=== PATIENT | female | born 1960 | race African-American/Black ===

== ENCOUNTER 2017-10-08 15:05 | Outpatient (CLI) | payer MEDICARE, MEDICAID | END 2017-10-08 15:06 | disposition home or self-care (01) | LOC: BICMAMMO 15:05 | PROVIDERS: ATTEND Family Medicine | DX: Z12.31 Encounter for screening mammogram for malignant neoplasm of breast (principal) | CPT/HCPCS: 77063; 77067 ==

== ENCOUNTER 2018-10-09 14:28 | Outpatient (CLI) | payer MEDICARE, MEDICAID ==
--- NOTE | 2018-10-19 13:19 | MMO ---
Bilateral MAMMO Bilat Screen [facility]. CLINICAL HISTORY: Patient is 58 years old and is seen for screening. The patient has the following family history of breast cancer: maternal grandmother, at age 90, malignant (generic). The patient has no personal history of cancer. VIEWS: The views performed were: bilateral craniocaudal with tomosynthesis and bilateral mediolateral oblique with tomosynthesis. FILMS COMPARED: The present examination has been compared to prior imaging studies performed at [facility] on 11/27/1999, 02/13/2001, 05/20/2002, 05/23/2003, 07/12/2004, 07/17/2005, 07/18/2006, 08/26/2007, 08/31/2008, 09/01/2009, 09/03/2010, 09/02/2011, 09/04/2012, 09/06/2013, 09/07/2014, 09/15/2015, 09/17/2016 and 10/08/2017. MAMMOGRAM FINDINGS: The breasts are heterogeneously dense, which could obscure a lesion on mammography. There are no suspicious masses, calcifications or areas of architectural distortion. IMPRESSION: THERE IS NO MAMMOGRAPHIC EVIDENCE OF MALIGNANCY. A ROUTINE FOLLOW-UP MAMMOGRAM IN 1 YEAR IS RECOMMENDED. THE RESULTS OF THIS EXAM WERE SENT TO THE PATIENT. ACR BI-RADS Category 1 - Negative MAMMOGRAPHY NOTE: 1. A negative mammogram report should not delay a biopsy if a dominant of clinically suspicious mass is present. 2. Approximately 10% to 15% of breast cancers are not detected by mammography. 3. Adenosis and dense breasts may obscure an underlying neoplasm.
== END 2018-10-09 14:29 | disposition home or self-care (01) ==
LOC: BICMAMMO 14:28
PROVIDERS: ATTEND Family Medicine
DX: Z12.31 Encounter for screening mammogram for malignant neoplasm of breast (principal); Z80.3 Family history of malignant neoplasm of breast
CPT/HCPCS: 77063; 77067

== ENCOUNTER 2018-10-26 14:43 | Outpatient (CLI) | payer MEDICARE, MEDICAID ==
--- NOTE | 2018-10-26 16:19 | CT ---
LOW DOSE CT SCAN OF THE CHEST FOR LUNG CANCER SCREENING WITHOUT IV CONTRAST: History: Smoker for 30 years. FINDINGS: There are scattered bullous changes. There is a 19 mm nodule in the right upper lobe anteriorly with adjacent mild infiltrate. Also noted are nodules around a bullous lesion in the right lower lobe, the largest measuring 15 mm. No effusions are seen. There are vascular calcifications without evidence of aneurysm or dilatation o f the abdominal aorta. No acute fracture or dislocation identified. IMPRESSION: Right sided lung nodules which could be suspicious. RECOMMENDATION: Further evaluation with PET scan is recommended after a course of antibiotics. POS: TPC
== END 2018-10-26 14:44 | disposition home or self-care (01) ==
LOC: CT 14:43
PROVIDERS: ATTEND Family Medicine
DX: F17.210 Nicotine dependence, cigarettes, uncomplicated (principal)
CPT/HCPCS: G0297

== ENCOUNTER 2018-12-31 10:23 | Outpatient (CLI) | payer MEDICARE, MEDICAID ==
--- NOTE | 2018-12-31 12:00 | PET ---
Exam: PET CT skull to mid thigh COMPARISON: CT thorax, 10/26/2018 HISTORY: Pulmonary nodules, right lung TECHNIQUE: A PET/CT was performed from the skull to the mid thigh after administration of 10.3 millicuries of F- 18 FDG. Evaluation was performed on a [employer] workstation. FINDINGS: NECK: No areas of hypermetabolic activity CHEST: Previously documented right upper lobe pulmonary nodule, which is ill-defined with surrounding groundglass irregularity does reveal abnormal, hypermetabolic activity, with maximum SUV of approximately 3.5. The additional partially cystic/cavitary nodule of the right lower lobe does not r eveal hypermetabolic activity although this is a collection of small nodules surrounding a cystic focus of the pulmonary parenchyma and therefore is difficult to reliably evaluate with PET imaging as a result of the collection of small nodules. Therefore, this should be followed with serial CT thorax imaging to confirm resolution. A hypermetabolic right hilar lymph node is present, difficult t o morphologically distinguish on the basis of the noncontrast attenuation CT imaging, although maximum SUV is 2.7. ABDOMEN/PELVIS: No areas of hypermetabolic activity SKELETON: No areas of hypermetabolic activity CT images used for attenuation correction show heterogeneity, prominence, and lobularity of the uteru s with multiple calcifications indicating fibroid uterus. There is diffuse vascular disease. There is mild colonic diverticulosis. IMPRESSION: 1. Hypermetabolic right upper lobe pulmonary nodule favoring malignancy. There is a hypermetabolic r ight hilar adenopathy, as well. 2. There is no hypermetabolic activity involving the collection of nodules surrounding a cystic luce ncy of the right lower lobe. This could relate to atypical infection although the possibility of neoplastic nodularity is not excluded and therefore continued CT thorax imaging for continued assessm ent is warranted. Transcribed Date/Time: 12/31/2018 12:08 PM
== END 2018-12-31 10:24 | disposition home or self-care (01) ==
LOC: PET 10:23
PROVIDERS: ATTEND Family Medicine
DX: R91.8 Other nonspecific abnormal finding of lung field (principal); R59.0 Localized enlarged lymph nodes
CPT/HCPCS: 78815; A9552

== ENCOUNTER 2019-02-17 08:18 | Day surgery (SDC) | payer MEDICARE, MEDICAID ==
[2019-02-16 12:31] VITALS: BMI 20.5
[2019-02-17 08:40] LABS: #Basophils 0.1 thou/uL (0.0-0.2); #Eosinphils 0.2 thou/uL (0.0-0.7); #Lymphocytes 3.5 thou/uL (1.20-3.40); #Monocytes 0.7 thou/uL (0.11-0.59); #Neutrophils 2.8 thou/uL (1.40-6.50); %Basophils 1.2 % (0.0-1.0); %Eosinophils 2.5 % (0.0-10.0); %Monocytes 10.2 % (0.0-10.0); %Neutrophils 38.3 % (42.0-75.0); Hemoglobin 13.6 g/dL (12.0-16.0); Mean Corpuscular Hemoglobin 31.8 pg (27.0-31.0); Mean Platelet Volume 8.1 fL (7.4-10.4); Platelet Count 237 thou/uL (130-400); RBC Distribution Width 11.6 % (11.5-14.5); Red Blood Cell (RBC) Count 4.28 mill/uL (4.20-5.40); White Blood Cell (WBC) Count 7.3 thou/uL (4.8-10.8)
[2019-02-17 08:44] LABS: PTT 27.8 SEC (22.9-36.1); Prothrombin Time 12.8 SEC (12.0-14.7)
[2019-02-17] MEDS ORDERED: Sodium Bicarbonate 2.5 MEQ/5 ML VIAL ONE (10:54)
[2019-02-17] MEDS ORDERED: Midazolam HCl 2 mg/2 ml Vial ONE (10:55)
[2019-02-17] MEDS ORDERED: Fentanyl 100 MCG/2 ML VIAL ONE (10:55)
--- NOTE | 2019-02-17 14:54 | CT ---
CT-guided biopsy right upper lobe lung mass. Conscious sedation: At least 40 minutes were spent with the patient for conscious sedation. HISTORY: Hypermetabolic right upper lobe lung mass. FINDINGS: After explaining the procedure and answering all questions, limited CT imaging of the upper chest was performed. Sterile technique, buffered local anesthesia, conscious sedation, CT guidance, and a right upper anterior approach were used to carefully advance the tip of a 19-gauge ne edle into the spiculated mass at the anterior aspect of the right apex. Position was confirmed with CT. A total of 3 20-gauge core biopsy specimens were obtained and submitted to Dr. Fink, who confirmed s pecimen adequacy. Needle was removed. Postprocedure imaging shows no evidence of complication. Patient tolerated the pr ocedure well and was eventually discharged in good condition. IMPRESSION: Technically successful CT-guided biopsy right upper lobe lung mass. Pathology is pending.
--- NOTE | 2019-02-17 15:42 | RAD ---
Chest inspiratory expiratory views HISTORY: Right lung mass with biopsy. FINDINGS: Each lung is well-inflated. Mediastinum is midline. Postoperative changes left shoulder. No evidence of pneumothorax.
--- NOTE | 2019-02-17 15:49 | RAD ---
Chest inspiratory expiratory views HISTORY: Right lung mass with biopsy. FINDINGS: Cardiac silhouette is magnified. Pulmonary vasculature are unremarkable. Lungs are hyperinf lated. Mediastinum is midline. No evidence of pneumothorax. IMPRESSION: No evidence of pneumothorax. Patient is radiographically cleared for discharge after biop sy.
== END 2019-02-17 14:45 | disposition home or self-care (01) ==
LOC: CT 08:18
PROVIDERS: ATTEND Family Medicine
DX: R91.8 Other nonspecific abnormal finding of lung field (principal); I10 Essential (primary) hypertension; F41.9 Anxiety disorder, unspecified; E78.5 Hyperlipidemia, unspecified; K21.9 Gastro-esophageal reflux disease without esophagitis; K44.9 Diaphragmatic hernia without obstruction or gangrene; F17.210 Nicotine dependence, cigarettes, uncomplicated; M06.9 Rheumatoid arthritis, unspecified; Z79.899 Other long term (current) drug therapy; Z88.5 Allergy status to narcotic agent; Z88.8 Allergy status to other drugs, medicaments and biological substances
CPT/HCPCS: 32405; 36415; 71045; 77012; 85025; 85610; 85730; 88305; 88313; 88333; 88334; 88341; 88342; J2250; J3010

== ENCOUNTER 2019-04-13 11:30 | Outpatient (CLI) | payer MEDICARE, MEDICAID ==
--- NOTE | 2019-04-13 14:41 | MRI ---
MRI BRAIN WITH AND WITHOUT CONTRAST: INDICATIONS: Adenocarcinoma of the lung. FINDINGS: The ventricles have normal size and position. Moderate white matter hyperintensities are seen in the paraventricular and deep white matter of both cerebral hemispheres. This would be most consistent w ith chronic ischemic change in a patient of this age. No evidence of restricted diffusion. No abnormal enhancement identified. The cerebral vessels show expected flow voids. The paranasal si nuses appear clear. IMPRESSION: White matter hyperintensities are noted in both cerebral hemispheres. This is nonspecific but in a p atient of this age most likely represents moderately severe chronic ischemic white matter change. Th ere is no evidence of a metastatic lesion. POS: OFF
--- NOTE | 2019-04-13 14:48 | PET ---
PET CT: HISTORY: 59-year-old female with right-sided non-small cell lung carcinoma (well to moderately differentiated adenocarcinoma) diagnosed on biopsy of 02/17/19. Exam requested for staging. TECHNIQUE: PET scanning with CT attenuation correction was performed from the base of the brain through the prox imal thighs following the intravenous administration of 12 mCi F18-FDG in the right antecubital fossa . COMPARISON: PET CT of 12/31/18. FINDINGS: There is continued hypermetabolic activity in the right upper lobe lung nodule noted on the previous study with current SUV of 5 (previously 3.5). No other hypermetabolic pulmonary nodules are seen. No rosalinda hypermetabolism is seen in the neck, mediastinum, hilar regions, axilla, abdomen, or pelvis. No hypermetabolic liver, adrenal, or skeletal lesions are identified. There is physiologic activity in the GI and tracts, and the visualized portions of the brain. The CT scan used for attenuation correction demonstrates no evidence of pleural effusions or ascites. A fibroid uterus is again seen. IMPRESSION: Findings are consistent with right upper lobe pulmonary malignancy. No evidence of metastatic disease . POS: SILVA
== END 2019-04-13 11:31 | disposition home or self-care (01) ==
LOC: PET 11:30
PROVIDERS: ATTEND Family Medicine
DX: C34.90 Malignant neoplasm of unspecified part of unspecified bronchus or lung (principal)
CPT/HCPCS: 70553; 78815; A9552

== ENCOUNTER 2019-04-27 13:46 | Outpatient (CLI) | payer MEDICARE, MEDICAID | END 2019-04-27 13:47 | disposition home or self-care (01) | LOC: CP 13:46 | PROVIDERS: ATTEND Internal Medicine Hematology & Oncology | DX: C34.11 Malignant neoplasm of upper lobe, right bronchus or lung (principal) | CPT/HCPCS: 94060; 94727; 94729 ==

== ENCOUNTER 2019-05-23 14:52 | Emergency (ER) | payer MEDICARE, MEDICAID ==
[2019-05-23 15:24] LABS: #Basophils 0.1 thou/uL (0.0-0.2); #Eosinphils 0.3 thou/uL (0.0-0.7); #Lymphocytes 3.2 thou/uL (1.20-3.40); #Monocytes 1.1 thou/uL (0.11-0.59); #Neutrophils 4.8 thou/uL (1.40-6.50); %Basophils 0.8 % (0.0-1.0); %Eosinophils 3.5 % (0.0-10.0); %Monocytes 11.1 % (0.0-10.0); %Neutrophils 50.6 % (42.0-75.0); Hemoglobin 10.3 g/dL (12.0-16.0); Mean Corpuscular HGB CONC 33.7 g/dL (32.0-36.0); Mean Corpuscular Hemoglobin 31.6 pg (27.0-31.0); Mean Corpuscular Volume 93.9 fL (78.0-98.0); Mean Platelet Volume 6.4 fL (7.4-10.4); Platelet Count 548 thou/uL (130-400); RBC Distribution Width 11.8 % (11.5-14.5); Red Blood Cell (RBC) Count 3.26 mill/uL (4.20-5.40); White Blood Cell (WBC) Count 9.5 thou/uL (4.8-10.8)
[2019-05-23 15:48] LABS: ALT (SGPT) 26 U/L (8-55); AST (SGOT) 23 U/L (5-34); Albumin 4.1 g/dL (3.5-5.0); Alkaline Phosphatase 106 U/L (40-110); Anion Gap 13 mmol/L (10-20); BUN (Urea Nitrogen) 13 mg/dL (9.8-20.1); Bilirubin, Total 0.3 mg/dL (0.2-1.2); Calc. Creatinine Clearance 0 mL/min (70-130); Calcium 10.1 mg/dL (7.8-10.44); Carbon Dioxide 24 mmol/L (22-29); Chloride 106 mmol/L (98-107); Estimated GFR-MDRD 84; Glucose 98 mg/dL (70-105); Potassium 4.3 mmol/L (3.5-5.1); Protein, Total 8.1 g/dL (6.0-8.3); Sodium 139 mmol/L (136-145)
[2019-05-23] MEDS ORDERED: HYDROcodone/Acetaminophen 5/325 mg Tablet ONE (16:30)
--- NOTE | 2019-05-23 17:06 | RAD ---
Exam: Chest one view HISTORY:Right lung cancer. Right lung removal. Comparison: 02/17/2019 FINDINGS: Cardiac silhouette: Normal Aorta: Unremarkable Pulmonary vessels: Normal Costophrenic angles: Chronic changes in the right lung base with elevation the right hemidiaphragm li kyler due to atelectasis and scar. LUNGS: Adequate aeration of the left lung. There is a suture chain in the right hemithorax compatible with partial right lung resection. Right-sided pneumothorax is identified. No significant cardiomediastinal shift. Pneumothorax: Right-sided pneumothorax. Osseous abnormalities: None IMPRESSION: Postsurgical changes compatible with partial right lung resection. Right-sided pneumothorax. Results of the study discussed with Dr. Mancera 05/23/2019 at 5:02 PM Code CR
== END 2019-05-23 17:15 | disposition home or self-care (01) ==
LOC: ERS 14:52
DX: J95.862 Postprocedural seroma of a respiratory system organ or structure following a respiratory system procedure (principal); R05 Cough; E78.5 Hyperlipidemia, unspecified; I10 Essential (primary) hypertension; F17.210 Nicotine dependence, cigarettes, uncomplicated; Z79.899 Other long term (current) drug therapy
CPT/HCPCS: 36415; 71045; 80053; 83605; 85025

== ENCOUNTER 2019-10-13 13:36 | Outpatient (CLI) | payer MEDICARE, MEDICAID ==
--- NOTE | 2019-10-13 14:44 | MMO ---
Bilateral MAMMO Bilat Screen [facility]. CLINICAL HISTORY: Patient is 59 years old and is seen for screening. The patient has the following family history of breast cancer: maternal grandmother, at age 90, malignant (generic). The patient has no personal history of cancer. VIEWS: The views performed were: bilateral craniocaudal with tomosynthesis and bilateral mediolateral oblique with tomosynthesis. FILMS COMPARED: The present examination has been compared to prior imaging studies performed at [facility] on 09/17/2016, 10/08/2017 and 10/09/2018. This study has been interpreted with the assistance of computer-aided detection. MAMMOGRAM FINDINGS: There are scattered fibroglandular densities. There are no suspicious masses, suspicious calcifications, or new areas of architectural distortion. IMPRESSION: THERE IS NO MAMMOGRAPHIC EVIDENCE OF MALIGNANCY. A ROUTINE FOLLOW-UP MAMMOGRAM IN 1 YEAR IS RECOMMENDED. THE RESULTS OF THIS EXAM WERE SENT TO THE PATIENT. ACR BI-RADS Category 1 - Negative MAMMOGRAPHY NOTE: 1. A negative mammogram report should not delay a biopsy if a dominant of clinically suspicious mass is present. 2. Approximately 10% to 15% of breast cancers are not detected by mammography. 3. Adenosis and dense breasts may obscure an underlying neoplasm. Reported by: BRYSON PEACOCK MD Electonically Signed: [id number]
== END 2019-10-13 13:37 | disposition home or self-care (01) ==
LOC: BICMAMMO 13:36
PROVIDERS: ATTEND Family Medicine
DX: Z12.31 Encounter for screening mammogram for malignant neoplasm of breast (principal); Z80.3 Family history of malignant neoplasm of breast
CPT/HCPCS: 77063; 77067

== ENCOUNTER 2019-12-15 11:02 | Outpatient (CLI) | payer MEDICARE, MEDICAID ==
--- NOTE | 2019-12-15 12:44 | CT ---
CHEST CT SCAN WITH IV CONTRAST: Date: 12/15/2019 HISTORY: Surveillance after lung cancer surgery. Malignant neoplasm right upper lobe. COMPARISON: PET scan dated 04/13/2019. FINDINGS: The previously noted right upper lobe mass, as well as portions of the right upper lobe, have been re sected. There is some minimal postoperative scarring along the right major fissure and also in the ri ght costophrenic angle region. Several small, scattered bullae in the right lung. No evidence for ple ural effusion. No mediastinal mass or adenopathy. No pericardial effusion. The visualized liver is un remarkable. No evidence for metastasis. IMPRESSION: Status post partial right upper lobe lobectomy with some minimal associated postoperative scarring. N o evidence for mediastinal adenopathy, pleural effusion, or evidence for metastasis. POS: C
== END 2019-12-15 11:03 | disposition home or self-care (01) ==
LOC: SCSCT 11:02
PROVIDERS: ATTEND Internal Medicine Hematology & Oncology
DX: C34.11 Malignant neoplasm of upper lobe, right bronchus or lung (principal); J98.4 Other disorders of lung
CPT/HCPCS: 71260; 82565

== ENCOUNTER 2020-06-19 10:47 | Outpatient (CLI) | payer MEDICARE, MEDICAID ==
--- NOTE | 2020-06-19 11:52 | CT ---
CT CHEST WITH CONTRAST CLINICAL INDICATION: Lung cancer follow-up. History of right upper lobectomy. COMPARISON: 12/15/2019 FINDINGS: Aorta: Vascular calcifications are seen in the aortic arch. Thoracic aorta is normal in caliber. Lungs: Postoperative changes related to right upper lobectomy. There are areas of linear scarring see n within the right lower lobe. Deformity of the right lateral chest wall is present related to postoperative change. No discrete pulmonary nodule or mass is identified. There is no pleural effusio n. Mediastinum: No enlarged lymph nodes are seen by CT size criteria. No pericardial effusion is present . Thyroid gland: Normal CT appearance. Osseous structures: No suspicious lytic or sclerotic osseous lesion is identified. Chest wall: No abnormality visualized. Upper abdomen: There is a 15 mm x 2 mm nodule involving the left adrenal gland which is similar to pr ior study. IMPRESSION: 1. Postoperative changes related to right upper lobectomy with areas of scarring on the right. No new pulmonary nodule or mass is seen within the lungs bilaterally. 2. Left adrenal nodule which cannot be characterized as an adrenal adenoma based on this exam. This n odule is similar to study on 12/15/2019. 3. No evidence of lymphadenopathy.
[2020-06-19] MEDS ORDERED: Iopamidol-370 76% 500 ML 1 ML ONE (12:18)
== END 2020-06-19 10:48 | disposition home or self-care (01) ==
LOC: BICCT 10:47
PROVIDERS: ATTEND Internal Medicine Hematology & Oncology
DX: C34.90 Malignant neoplasm of unspecified part of unspecified bronchus or lung (principal); E27.8 Other specified disorders of adrenal gland; Z98.890 Other specified postprocedural states
CPT/HCPCS: 71260; 82565; Q9967

== ENCOUNTER 2020-10-17 13:49 | Outpatient (CLI) | payer MEDICARE, MEDICAID | END 2020-10-17 13:50 | disposition home or self-care (01) | LOC: BICMAMMO 13:49 | PROVIDERS: ATTEND Family Medicine | DX: Z12.31 Encounter for screening mammogram for malignant neoplasm of breast (principal); Z80.3 Family history of malignant neoplasm of breast | CPT/HCPCS: 77063; 77067 ==

== ENCOUNTER 2021-03-23 11:49 | Day surgery (SDC) | payer MEDICARE, MEDICAID ==
[2021-03-22 12:15] VITALS: BMI 21.5
[2021-03-23] MEDS ORDERED: PROPOFOL 200 MG/20 ML VIAL ONE (14:30)
[2021-03-23] MEDS ORDERED: Ondansetron PF 4 MG/2 ML Vial ONE (14:30)
[2021-03-23] MEDS ORDERED: Dexamethasone 20 MG/5 ML VIAL ONE (14:30)
[2021-03-23] MEDS ORDERED: Lidocaine 1% PF 5 ML VIAL ONE (14:30)
== END 2021-03-23 16:28 | disposition home or self-care (01) ==
LOC: SDC/OP 11:49
PROVIDERS: ATTEND Anesthesiology Pain Medicine
DX: M50.023 Cervical disc disorder at C6-C7 level with myelopathy (principal); M54.14 Radiculopathy, thoracic region; G89.12 Acute post-thoracotomy pain; K21.9 Gastro-esophageal reflux disease without esophagitis; I10 Essential (primary) hypertension; M19.90 Unspecified osteoarthritis, unspecified site; F17.200 Nicotine dependence, unspecified, uncomplicated; Z79.899 Other long term (current) drug therapy; Z88.5 Allergy status to narcotic agent; Z88.6 Allergy status to analgesic agent; Z88.8 Allergy status to other drugs, medicaments and biological substances
CPT/HCPCS: 72146; 93005; 93010; J1100; J2405; J2704

== ENCOUNTER 2021-04-19 11:46 | Outpatient (CLI) | payer MEDICARE, MEDICAID ==
[2021-04-20 00:24] LABS: SARS-CoV-2 PCR by NAA Not Detected (NotDetected)
== END 2021-04-19 11:47 | disposition home or self-care (01) ==
LOC: LABBT 11:46
PROVIDERS: ATTEND Anesthesiology Pain Medicine
DX: Z01.812 Encounter for preprocedural laboratory examination (principal); Z20.822 Contact with and (suspected) exposure to COVID-19
CPT/HCPCS: U0003; U0005

== ENCOUNTER 2021-04-23 09:47 | Day surgery (SDC) | payer MEDICARE, MEDICAID ==
[2021-04-20 08:56] VITALS: BMI 21.5
[2021-04-23] MEDS ORDERED: PROPOFOL 200 MG/20 ML VIAL ONE (10:45)
[2021-04-23] MEDS ORDERED: Lidocaine 1% PF 5 ML VIAL ONE (10:45)
[2021-04-23] MEDS ORDERED: ePHEDrine 50 MG/ML VIAL ONE (10:45)
[2021-04-23] MEDS ORDERED: Ondansetron PF 4 MG/2 ML Vial ONE (10:45)
[2021-04-23] MEDS ORDERED: Dexamethasone 20 MG/5 ML VIAL ONE (10:45)
== END 2021-04-23 12:45 | disposition home or self-care (01) ==
LOC: MRI 09:47 → SDC/OP 12:45
PROVIDERS: ATTEND Anesthesiology Pain Medicine
DX: M50.223 Other cervical disc displacement at C6-C7 level (principal); M47.812 Spondylosis without myelopathy or radiculopathy, cervical region; M48.02 Spinal stenosis, cervical region; K21.9 Gastro-esophageal reflux disease without esophagitis; I10 Essential (primary) hypertension; M19.90 Unspecified osteoarthritis, unspecified site; F17.200 Nicotine dependence, unspecified, uncomplicated; G89.12 Acute post-thoracotomy pain; M54.14 Radiculopathy, thoracic region; Z88.5 Allergy status to narcotic agent; Z88.6 Allergy status to analgesic agent; Z88.8 Allergy status to other drugs, medicaments and biological substances
CPT/HCPCS: 72141

== ENCOUNTER 2021-10-19 13:45 | Outpatient (CLI) | payer MEDICARE, MEDICAID | END 2021-10-19 13:46 | disposition home or self-care (01) | LOC: BICMAMMO 13:45 | PROVIDERS: ATTEND Family Medicine | DX: Z12.31 Encounter for screening mammogram for malignant neoplasm of breast (principal); Z80.3 Family history of malignant neoplasm of breast; N64.89 Other specified disorders of breast | CPT/HCPCS: 77063; 77067 ==

== ENCOUNTER 2021-10-26 13:55 | Outpatient (CLI) | payer MEDICARE, MEDICAID | END 2021-10-26 13:56 | disposition home or self-care (01) | LOC: BICMAMMO 13:55 | PROVIDERS: ATTEND Family Medicine | DX: R92.2 Inconclusive mammogram (principal) | CPT/HCPCS: 77065; G0279 ==

== ENCOUNTER 2022-01-14 13:58 | Outpatient (CLI) | payer MEDICARE, MEDICAID | END 2022-01-14 13:59 | disposition home or self-care (01) | LOC: ULT 13:58 | PROVIDERS: ATTEND Family Medicine | DX: M79.89 Other specified soft tissue disorders (principal); M79.604 Pain in right leg ==

== ENCOUNTER 2022-11-12 15:23 | Outpatient (CLI) | payer OTHER, MEDICAID | END 2022-11-12 15:24 | disposition home or self-care (01) | LOC: BICRAD 15:23 | PROVIDERS: ATTEND Nurse Practitioner Family | DX: M25.551 Pain in right hip (principal); M16.11 Unilateral primary osteoarthritis, right hip ==

== ENCOUNTER 2022-11-19 14:03 | Outpatient (CLI) | payer OTHER, MEDICAID | END 2022-11-19 14:04 | disposition home or self-care (01) | LOC: BICMAMMO 14:03 | PROVIDERS: ATTEND Family Medicine | DX: Z12.31 Encounter for screening mammogram for malignant neoplasm of breast (principal) | CPT/HCPCS: 77063; 77067 ==

== ENCOUNTER 2022-12-04 12:32 | Outpatient (CLI) | payer OTHER, MEDICAID | END 2022-12-04 12:33 | disposition home or self-care (01) | LOC: MRI 12:32 | PROVIDERS: ATTEND Nurse Practitioner Family | DX: M25.551 Pain in right hip (principal); M48.02 Spinal stenosis, cervical region; M54.12 Radiculopathy, cervical region; R29.890 Loss of height; M47.812 Spondylosis without myelopathy or radiculopathy, cervical region; M50.323 Other cervical disc degeneration at C6-C7 level | CPT/HCPCS: 72141 ==

== ENCOUNTER 2023-02-20 14:56 | Outpatient (CLI) | payer OTHER, MEDICAID | END 2023-02-20 14:57 | disposition home or self-care (01) | LOC: RAD 14:56 | PROVIDERS: ATTEND Neurological Surgery | DX: M47.22 Other spondylosis with radiculopathy, cervical region (principal) | CPT/HCPCS: 72050 ==

== ENCOUNTER 2023-04-28 08:03 | Emergency (ER) | payer OTHER, MEDICAID ==
[2023-04-28] MEDS ORDERED: Famotidine 20 MG TAB ONE (08:29)
[2023-04-28] MEDS ORDERED: diphenhydrAMINE 25 MG CAP ONE (08:29)
[2023-04-28] MEDS ORDERED: methylPREDNISolone Sod Succ/PF 125 MG/2 ML VIAL ONE (08:30)
== END 2023-04-28 09:23 | disposition home or self-care (01) ==
LOC: ERS 08:03
DX: L50.9 Urticaria, unspecified (principal); E78.5 Hyperlipidemia, unspecified; I10 Essential (primary) hypertension; F17.210 Nicotine dependence, cigarettes, uncomplicated; Z79.899 Other long term (current) drug therapy
CPT/HCPCS: 96372; 99284; J2930